=== PATIENT | male | born 1995 | race Caucasian/White ===

== ENCOUNTER → 2019-05-17 | Outpatient (CLI) | payer BC ==
[~2019-05-17] MED LIST: CLARITIN10 MG; ZITHROMAX Z PA250 MG PO
--- NOTE | ~2019-05-17 | PF ---
[place], [place] PULMONARY FUNCTION TEST NAME: [facility] WILLIS [id number] UN[facility] #: [id number] ROOM: DOCTOR: JUANITA COY MD,MUNDO BIRTHDATE: [birth year] DOS: 05/17/2019 PULMONARY FUNCTION TEST ORDERED BY: KATE Martínez. HISTORY: The patient is a 24-year-old male, height of 66 inches, weight of 197 pounds, BMI 31.8. The patient was reported as history of alpha-1 antitrypsin deficiency in the diagnosis and symptoms of shortness of breath with exertion reported. There was no past tobacco use. SPIROMETRY: FVC was recorded 4.74 liters, 98% predicted value, FEV1 of 4.02 liters, 98% predicted value. Ratio of FEV1/FVC 85%. Flow volume loop noted partial improvement, did not meet the criteria with significant improvement with ATS. LUNG VOLUME: Thoracic gas volume recorded as 89%, residual volume 72%, total lung capacity 100%. The patient's airway resistance, passive conductance normal. The patient's lung diffusion noted normal. FINAL IMPRESSION: Normal pulmonary function tests were noted. MUNDO GRANT MD CM:PFREPORT:PULMONARY FUNCTION TEST [id number] MUNDO COY MD
== END | disposition home or self-care (01) ==
LOC: RAD 06:38
DX: E88.01 Alpha-1-antitrypsin deficiency (principal)

== ENCOUNTER 2021-08-31 09:27 | Emergency (ER) | payer OTHER ==
[~2021-08-31] VITALS: Ht 167.6 cm; Wt 95.3 kg
== END 2021-08-31 11:38 | disposition home or self-care (01) ==
LOC: ED 09:27
DX: S81.012A Laceration without foreign body, left knee, initial encounter (principal); W22.8XXA Striking against or struck by other objects, initial encounter; Y93.89 Activity, other specified; Y92.89 Other specified places as the place of occurrence of the external cause; Y99.8 Other external cause status